=== PATIENT | female | born 1970 | race Caucasian/White ===

== ENCOUNTER 2022-01-04 20:28 | Emergency (ER) | payer OTHER ==
[~2022-01-04] VITALS: Ht 162.6 cm; Wt 56.2 kg
[2022-01-04] MEDS ORDERED: TRAMADOL HCL 50 MG TAB PO STA (20:39)
[2022-01-04] MEDS ORDERED: ULTRAM 50MG50 MG PO (20:47)
== END 2022-01-04 21:34 | disposition home or self-care (01) ==
LOC: ER 20:33
DX: M79.662 Pain in left lower leg (principal); S86.812A Strain of other muscle(s) and tendon(s) at lower leg level, left leg, initial encounter; X58.XXXA Exposure to other specified factors, initial encounter; Y92.89 Other specified places as the place of occurrence of the external cause
CPT/HCPCS: 99282